=== PATIENT | female | born 1935 | race Caucasian/White ===

== ENCOUNTER → 2020-06-08 | Outpatient (CLI) | payer SELFPAY ==
[~2020-06-08] MED LIST: ASPIRIN81 MG PO; BENEFIBER1 EAC1 PO; CALCIUM 500+D1 EACH PO; COVID-19 VACC, MRNA(MODERNA)/PF 100 MCG/0.5 ML VIAL IM ONE; ELIQUIS5 MG PO; ISOSORBIDE MONO30 MG PO; MONTELUKAST SOD10 MG; NEXIUM40 MG PO; NITROSTAT0.4 MG PO; PRAVASTATIN SOD40 MG PO; SLO-NIACIN250 MG PO; ZETIA10 MG PO
== END ==
LOC: VACCPMC 10:47
DX: Z23 Encounter for immunization (principal); Z20.822 Contact with and (suspected) exposure to COVID-19
CPT/HCPCS: 0011A; 91301

== ENCOUNTER → 2020-07-06 | Outpatient (CLI) | payer MEDICARE, OTHER | END | disposition home or self-care (01) | LOC: VACCPMC 09:23 | DX: Z23 Encounter for immunization (principal); Z20.822 Contact with and (suspected) exposure to COVID-19 ==

== ENCOUNTER 2020-09-23 07:47 | Observation (INO) | payer MEDICARE, OTHER ==
[~2020-09-23] VITALS: Ht 154.9 cm; Wt 59.4 kg
[~2020-09-23 07:47] MED LIST changes: -COVID-19 VACC, MRNA(MODERNA)/PF 100 MCG/0.5 ML VIAL IM ONE
[2020-09-23 08:49] LABS: BASOPHILS % 0.7 % (0.0-1.0); EOSINOPHILS # (AUTO) 0.2 (0.0-0.4); EOSINOPHILS % 3.3 % (0.0-6.0); HEMATOCRIT 33.7 % (34.2-44.1); HEMOGLOBIN 10.8 g/dL (12.0-16.0); LYMPHOCYTES # (AUTO) 1.1 (1.0-3.2); LYMPHOCYTES % 17.4 % (18.0-39.1); MEAN CORPUSCULAR HEMOGLOBIN 27.8 pg (28-32); MEAN CORPUSCULAR VOLUME 86.9 fL (81-99); MONOCYTES # (AUTO) 0.7 (0.2-0.8); MONOCYTES % 11.9 % (4.4-11.3); NEUTROPHILS # (AUTO) 4.1 (2.1-6.9); PLATELET COUNT 177 x10e3/uL (140-360); RED BLOOD COUNT 3.88 x10e6/uL (3.6-5.1); RED CELL DISTRIBUTION WIDTH 14.1 % (11.7-14.4)
[2020-09-23 09:01] LABS: INR 1.03; PROTHROMBIN TIME 14.1 seconds (11.9-14.5)
[2020-09-23 09:02] LABS: PARTIAL THROMBOPLASTIN TIME 39.4 seconds (23.8-35.5)
[2020-09-23 09:14] LABS: ALBUMIN 3.8 g/dL (3.5-5.0); ALBUMIN/GLOBULIN RATIO 1.4 (0.8-2.0); ANION GAP 15.7 mmol/L (8-16); CALCIUM 8.9 mg/dL (8.4-10.2); CREATININE, SERUM 1.29 mg/dL (0.57-1.11); POTASSIUM 3.7 mmol/L (3.5-5.1)
[2020-09-23] MEDS ORDERED: ACETAMINOPHEN 325 MG TAB PO ONE (09:45)
[2020-09-23 09:55] LABS: CLARITY,URINE CLEAR (CLEAR); COLOR,URINE YELLOW (YELLOW); KETONES,URINE NEGATIVE (NEGATIVE); LEUKOCYTE ESTERASE ,URINE NEGATIVE (NEGATIVE); NITRITE,URINE NEGATIVE (NEGATIVE); PROTEIN,URINE DIPSTICK NEGATIVE (NEGATIVE); URINE UROBILINOGEN 0.2 mg/dL (0.2 - 1)
[2020-09-23 10:14] LABS: BACTERIA,URINE RARE /HPF; EPITHELIAL CELLS,URINE RARE /LPF; RBC,URINE 0-5 /HPF (0-5); WBC,URINE (MAN) 0-5 /HPF (0-5)
[2020-09-23] MEDS ORDERED: IBUPROFEN 200 MG TAB PO STA (10:24)
[2020-09-23 12:50] VITALS: BP 165/85
[2020-09-23 13:28] VITALS: BP 165/85
[2020-09-23 13:37] VITALS: BP 165/85
[2020-09-23] MEDS ORDERED: Miralax PO (14:15)
[2020-09-23] MEDS ORDERED: [UNRECOGNIZED DRUG - OTHER] PO (14:15)
[2020-09-23 15:43] VITALS: BP 168/73
[2020-09-23] MEDS ORDERED: MORPHINE SULFATE INJ 2 MG/ML SYR IV PRN (17:45)
[2020-09-23] MEDS ORDERED: ACETAMINOPHEN 325 MG TAB PO PRN (17:45)
[2020-09-23 19:30] VITALS: BP 130/60
[2020-09-23 20:00] VITALS: BP 130/60
[2020-09-23] MEDS ORDERED: SIMVASTATIN 20 MG TAB PO SCH (21:00)
[2020-09-23] MEDS ORDERED: EZETIMIBE 10 MG TAB PO SCH (21:00)
[2020-09-23] MEDS ORDERED: ASPIRIN 81 MG CHEW TAB PO SCH (21:00)
[2020-09-24] VITALS: BP 133/77
[2020-09-24] MEDS ORDERED: KETOROLAC TROMETHAMINE 30 MG/ML VIAL IV STA (03:49)
[2020-09-24 04:00] VITALS: BP 144/65
[2020-09-24 06:13] LABS: BASOPHILS % 0.6 % (0.0-1.0); EOSINOPHILS # (AUTO) 0.2 (0.0-0.4); EOSINOPHILS % 4.5 % (0.0-6.0); HEMATOCRIT 33.3 % (34.2-44.1); HEMOGLOBIN 10.8 g/dL (12.0-16.0); LYMPHOCYTES # (AUTO) 0.4 (1.0-3.2); MEAN CORPUSCULAR HEMOGLOBIN 28.1 pg (28-32); MEAN CORPUSCULAR HGB CONC 32.4 g/dL (31-35); MEAN CORPUSCULAR VOLUME 86.7 fL (81-99); MONOCYTES # (AUTO) 0.6 (0.2-0.8); MONOCYTES % 11.8 % (4.4-11.3); NEUTROPHILS # (AUTO) 3.4 (2.1-6.9); NEUTROPHILS % 73.7 % (38.7-80.0); PLATELET COUNT 154 x10e3/uL (140-360); RED BLOOD COUNT 3.84 x10e6/uL (3.6-5.1); RED CELL DISTRIBUTION WIDTH 14.2 % (11.7-14.4)
[2020-09-24 06:29] LABS: ALBUMIN 3.3 g/dL (3.5-5.0); ALBUMIN/GLOBULIN RATIO 1.1 (0.8-2.0); ANION GAP 14.4 mmol/L (8-16); CALCIUM 8.7 mg/dL (8.4-10.2); CREATININE, SERUM 1.22 mg/dL (0.57-1.11); POTASSIUM 3.4 mmol/L (3.5-5.1)
[2020-09-24 07:45] VITALS: BP 138/63
[2020-09-24 08:03] VITALS: BP 138/63
[2020-09-24] MEDS ORDERED: WHEAT DEXTRIN PO SCH (09:00)
[2020-09-24] MEDS ORDERED: ISOSORBIDE MONONITRATE 20 MG TAB PO SCH (09:00)
[2020-09-24] MEDS ORDERED: PANTOPRAZOLE SOD 40 MG TABEC PO SCH (09:00)
[2020-09-24] MEDS ORDERED: APIXABAN 5 MG TABLET PO SCH (09:00)
[2020-09-24] MEDS ORDERED: LORATADINE 10 MG TAB PO SCH (10:30)
[2020-09-24 11:14] VITALS: BP 107/58
[2020-09-24] MEDS ORDERED: POTASSIUM CHLORIDE 10MEQ EA PO NR (13:30)
[2020-09-25] MEDS ORDERED: POLYETHYLENE GLYCOL 3350 17 GM PACK PO SCH (10:00)
== END 2020-09-24 15:00 | disposition home or self-care (01) ==
LOC: ER 07:51 → ERHOLD 10:54 → MED/SURG 12:38
PROVIDERS: ADMIT Family Medicine; ATTEND Family Medicine
DX: M25.551 Pain in right hip (principal); I48.91 Unspecified atrial fibrillation; Z79.01 Long term (current) use of anticoagulants; I10 Essential (primary) hypertension; I25.10 Atherosclerotic heart disease of native coronary artery without angina pectoris; E78.5 Hyperlipidemia, unspecified; R53.81 Other malaise; I12.9 Hypertensive chronic kidney disease with stage 1 through stage 4 chronic kidney disease, or unspecified chronic kidney disease; N18.30 Chronic kidney disease, stage 3 unspecified; Z86.73 Personal history of transient ischemic attack (TIA), and cerebral infarction without residual deficits; Z95.1 Presence of aortocoronary bypass graft; M16.11 Unilateral primary osteoarthritis, right hip; W19.XXXA Unspecified fall, initial encounter; Y93.89 Activity, other specified
CPT/HCPCS: 36415 ×2; 70450; 71045; 72170; 72192; 73700; 80053 ×2; 81001; 84484; 85025 ×2; 85610; 85730; 93005; 97116; 97161; 97530; 99284; G0378 ×2; J1885; J2270; S0164

== ENCOUNTER 2020-10-09 10:05 | Inpatient (IN) | payer MEDICARE ==
[~2020-10-09] VITALS: Ht 154.9 cm; Wt 60.3 kg
[~2020-10-09 10:05] MED LIST changes: +Miralax PO; +[UNRECOGNIZED DRUG - OTHER] PO
[2020-10-09] MEDS ORDERED: HYDROCODONE/APAP 5MG-325MG TAB PO ONE (11:00)
[2020-10-09 15:10] LABS: BASOPHILS % 0.5 % (0.0-1.0); EOSINOPHILS # (AUTO) 0.7 (0.0-0.4); EOSINOPHILS % 9.1 % (0.0-6.0); HEMATOCRIT 35.2 % (34.2-44.1); HEMOGLOBIN 11.1 g/dL (12.0-16.0); LYMPHOCYTES # (AUTO) 1.9 (1.0-3.2); LYMPHOCYTES % 24.2 % (18.0-39.1); MEAN CORPUSCULAR HGB CONC 31.5 g/dL (31-35); MEAN CORPUSCULAR VOLUME 88.7 fL (81-99); MONOCYTES # (AUTO) 0.8 (0.2-0.8); MONOCYTES % 10.1 % (4.4-11.3); NEUTROPHILS # (AUTO) 4.4 (2.1-6.9); NEUTROPHILS % 55.5 % (38.7-80.0); PLATELET COUNT 334 x10e3/uL (140-360); RED BLOOD COUNT 3.97 x10e6/uL (3.6-5.1); RED CELL DISTRIBUTION WIDTH 14.8 % (11.7-14.4)
[2020-10-09 15:33] LABS: ALBUMIN 3.8 g/dL (3.5-5.0); ALBUMIN/GLOBULIN RATIO 1.1 (0.8-2.0); CALCIUM 9.4 mg/dL (8.4-10.2); CREATININE, SERUM 1.13 mg/dL (0.57-1.11); MAGNESIUM 2.5 MG/DL (1.3-2.1)
[2020-10-09] MEDS: ONDANSETRON HCL INJ 2MG/ML 2ML 2 MG/ML VIAL IV PRN (17:44)
[2020-10-09] MEDS: SODIUM CHLORIDE 0.9% 1000ML 1,000 ML IV SCH (17:44)
[2020-10-09] MEDS: MORPHINE SULFATE INJ 2 MG/ML SYR IV PRN ×2 (17:44→21:33)
[2020-10-10] VITALS (12 sets, daily range): BP systolic 115–161; BP diastolic 65–80
[2020-10-10] MEDS: ONDANSETRON HCL INJ 2MG/ML 2ML 2 MG/ML VIAL IV PRN ×4 (02:09→22:54)
[2020-10-10] MEDS: MORPHINE SULFATE INJ 2 MG/ML SYR IV PRN ×4 (02:09→22:54)
[2020-10-10] MEDS: SODIUM CHLORIDE 0.9% 1000ML 1,000 ML IV SCH ×2 (02:24→12:49)
[2020-10-10 07:46] LABS: CREATINE KINASE MB 1.2 ng/mL (0-5.0)
[2020-10-10 08:12] LABS: BASOPHILS # (AUTO) 0.1 (0.0-0.1); EOSINOPHILS # (AUTO) 0.7 (0.0-0.4); EOSINOPHILS % 11.4 % (0.0-6.0); HEMATOCRIT 33.5 % (34.2-44.1); HEMOGLOBIN 10.6 g/dL (12.0-16.0); LYMPHOCYTES # (AUTO) 1.4 (1.0-3.2); LYMPHOCYTES % 22.1 % (18.0-39.1); MEAN CORPUSCULAR HEMOGLOBIN 28.1 pg (28-32); MEAN CORPUSCULAR HGB CONC 31.6 g/dL (31-35); MEAN CORPUSCULAR VOLUME 88.9 fL (81-99); MONOCYTES # (AUTO) 0.7 (0.2-0.8); MONOCYTES % 12.1 % (4.4-11.3); NEUTROPHILS # (AUTO) 3.2 (2.1-6.9); NEUTROPHILS % 52.9 % (38.7-80.0); PLATELET COUNT 296 x10e3/uL (140-360); RED BLOOD COUNT 3.77 x10e6/uL (3.6-5.1); RED CELL DISTRIBUTION WIDTH 14.7 % (11.7-14.4)
[2020-10-10 08:44] LABS: CREATINE KINASE MB 1.1 ng/mL (0-5.0)
[2020-10-10 08:58] LABS: ALBUMIN 3.2 g/dL (3.5-5.0); ANION GAP 13.7 mmol/L (8-16); CALCIUM 8.9 mg/dL (8.4-10.2); CREATININE, SERUM 0.85 mg/dL (0.57-1.11); POTASSIUM 3.7 mmol/L (3.5-5.1)
[2020-10-10] MEDS ORDERED: MIRALAX17 GM PO (10:16)
[2020-10-10] MEDS ORDERED: ZEBETA10 MG PO (10:16)
[2020-10-10] MEDS ORDERED: LORATADINE10 MG PO (10:16)
[2020-10-10] MEDS ORDERED: AMLODIPINE BESYL5 MG PO (10:16)
[2020-10-10] MEDS ORDERED: POLYETHYLENE GLYCOL 3350 17 GM PACK PO PRN (17:15)
[2020-10-10] MEDS: APIXAB 2.5 MG TABLET PO SCH (18:02)
[2020-10-10] MEDS: LIDOCAINE 4% PATCH TP PRN (18:03)
[2020-10-10] MEDS: ASPIRIN 81 MG CHEW TAB PO SCH (21:42)
[2020-10-10] MEDS: AMLODIPINE BESYLATE 5 MG TAB PO SCH (21:44)
[2020-10-10] MEDS: CALCIUM CARBONATE 500 MG CHEWABLE TABS PO SCH (21:44)
[2020-10-10] MEDS: BISOPROLOL FUMARATE 10 MG TAB PO SCH (21:45)
[2020-10-10] MEDS: EZETIMIBE 10 MG TAB PO SCH (21:45)
[2020-10-11] VITALS (7 sets, daily range): BP systolic 133–151; BP diastolic 60–82
[2020-10-11 05:05] LABS: BASOPHILS % 0.7 % (0.0-1.0); EOSINOPHILS # (AUTO) 0.8 (0.0-0.4); EOSINOPHILS % 14.8 % (0.0-6.0); HEMATOCRIT 33.5 % (34.2-44.1); HEMOGLOBIN 10.6 g/dL (12.0-16.0); LYMPHOCYTES # (AUTO) 1.5 (1.0-3.2); LYMPHOCYTES % 28.4 % (18.0-39.1); MEAN CORPUSCULAR HEMOGLOBIN 27.5 pg (28-32); MEAN CORPUSCULAR HGB CONC 31.6 g/dL (31-35); MONOCYTES # (AUTO) 0.6 (0.2-0.8); MONOCYTES % 10.8 % (4.4-11.3); NEUTROPHILS # (AUTO) 2.4 (2.1-6.9); NEUTROPHILS % 44.6 % (38.7-80.0); PLATELET COUNT 303 x10e3/uL (140-360); RED BLOOD COUNT 3.85 x10e6/uL (3.6-5.1); RED CELL DISTRIBUTION WIDTH 14.6 % (11.7-14.4)
[2020-10-11 05:19] LABS: ANION GAP 12.9 mmol/L (8-16); CALCIUM 8.9 mg/dL (8.4-10.2); CREATININE, SERUM 0.93 mg/dL (0.57-1.11); POTASSIUM 3.9 mmol/L (3.5-5.1)
[2020-10-11] MEDS: APIXAB 2.5 MG TABLET PO SCH ×2 (08:21→16:45)
[2020-10-11] MEDS: LORATADINE 10 MG TAB PO SCH (08:21)
[2020-10-11] MEDS: CALCIUM CARBONATE 500 MG CHEWABLE TABS PO SCH ×3 (08:21→21:02)
[2020-10-11] MEDS: PANTOPRAZOLE SOD 40 MG TABEC PO SCH (08:21)
[2020-10-11] MEDS ORDERED: APIXABAN 5 MG TABLET PO SCH (09:00)
[2020-10-11] MEDS: LIDOCAINE 4% PATCH TP PRN (10:30)
[2020-10-11] MEDS: MORPHINE SULFATE INJ 2 MG/ML SYR IV PRN ×2 (10:30→18:27)
[2020-10-11] MEDS: ONDANSETRON HCL INJ 2MG/ML 2ML 2 MG/ML VIAL IV PRN (10:30)
[2020-10-11] MEDS: ACETAMINOPHEN/CODEINE 300MG - 30MG TAB PO PRN ×2 (14:40→21:18)
[2020-10-11 16:04] LABS: INR 0.93
[2020-10-11 16:05] LABS: PARTIAL THROMBOPLASTIN TIME 31.9 seconds (23.8-35.5)
[2020-10-11] MEDS ORDERED: PRAVASTATIN SODIUM 80 MG PO SCH (21:00)
[2020-10-11] MEDS: PRAVASTATIN 20 MG TAB PO SCH (21:02)
[2020-10-11] MEDS: AMLODIPINE BESYLATE 5 MG TAB PO SCH (21:02)
[2020-10-11] MEDS: ASPIRIN 81 MG CHEW TAB PO SCH (21:02)
[2020-10-11] MEDS: EZETIMIBE 10 MG TAB PO SCH (21:03)
[2020-10-11] MEDS: BISOPROLOL FUMARATE 10 MG TAB PO SCH (21:03)
[2020-10-12] VITALS (7 sets, daily range): BP systolic 120–156; BP diastolic 60–79
[2020-10-12] MEDS: ACETAMINOPHEN/CODEINE 300MG - 30MG TAB PO PRN ×3 (04:47→20:03)
[2020-10-12] MEDS: APIXAB 2.5 MG TABLET PO SCH ×2 (08:13→17:08)
[2020-10-12] MEDS: LORATADINE 10 MG TAB PO SCH (08:13)
[2020-10-12] MEDS: CALCIUM CARBONATE 500 MG CHEWABLE TABS PO SCH ×3 (08:13→22:32)
[2020-10-12] MEDS: PANTOPRAZOLE SOD 40 MG TABEC PO SCH (08:13)
[2020-10-12] MEDS: DOCUSATE SODIUM 100 MG CAP PO SCH ×2 (09:32→17:08)
[2020-10-12] MEDS: LIDOCAINE 4% PATCH TP PRN (11:32)
[2020-10-12] MEDS: MORPHINE SULFATE INJ 2 MG/ML SYR IV PRN ×2 (13:56→23:24)
[2020-10-12] MEDS ORDERED: PRAVASTATIN 20 MG TAB PO SCH (21:00)
[2020-10-12] MEDS: AMLODIPINE BESYLATE 5 MG TAB PO SCH (21:55)
[2020-10-12] MEDS: ASPIRIN 81 MG CHEW TAB PO SCH (22:31)
[2020-10-12] MEDS: PRAVASTATIN 20 MG TAB PO SCH (22:32)
[2020-10-12] MEDS: EZETIMIBE 10 MG TAB PO SCH (22:40)
[2020-10-12] MEDS: BISOPROLOL FUMARATE 10 MG TAB PO SCH (22:40)
[2020-10-13 04:00] VITALS: BP 145/86
[2020-10-13] MEDS: ACETAMINOPHEN/CODEINE 300MG - 30MG TAB PO PRN ×2 (06:22→09:17)
[2020-10-13 07:00] VITALS: BP 172/85
[2020-10-13] MEDS: DOCUSATE SODIUM 100 MG CAP PO SCH ×2 (08:42→16:58)
[2020-10-13] MEDS: LORATADINE 10 MG TAB PO SCH (08:42)
[2020-10-13] MEDS: APIXAB 2.5 MG TABLET PO SCH ×2 (08:42→16:58)
[2020-10-13] MEDS: PANTOPRAZOLE SOD 40 MG TABEC PO SCH (08:42)
[2020-10-13] MEDS: CALCIUM CARBONATE 500 MG CHEWABLE TABS PO SCH ×2 (08:42→15:48)
[2020-10-13 09:08] VITALS: BP 172/85
[2020-10-13 09:10] VITALS: BP 172/85
[2020-10-13 11:40] VITALS: BP 146/66
[2020-10-13] MEDS ORDERED: ONDANSETRON HCL 4 MG ORAL DISINTEGRATING TAB PO PRN (13:45)
[2020-10-13 15:49] VITALS: BP 137/65
== END 2020-10-13 17:50 | DRG 543 ==
LOC: ER 10:25 → ERHOLD 16:14 → MED/SURG 10-10 00:55
PROVIDERS: ADMIT Internal Medicine; ATTEND Internal Medicine
DX: M84.48XA Pathological fracture, other site, initial encounter for fracture (principal); I48.20 Chronic atrial fibrillation, unspecified; M54.16 Radiculopathy, lumbar region; M47.819 Spondylosis without myelopathy or radiculopathy, site unspecified; Z86.73 Personal history of transient ischemic attack (TIA), and cerebral infarction without residual deficits; I25.10 Atherosclerotic heart disease of native coronary artery without angina pectoris; Z79.01 Long term (current) use of anticoagulants; E78.5 Hyperlipidemia, unspecified; I10 Essential (primary) hypertension; Z20.822 Contact with and (suspected) exposure to COVID-19
CPT/HCPCS: 36415; 72131; 72148; 72192; 80048; 80053; 82550; 82553; 83735; 84484; 85025; 85610; 85730; 93005; 97139; 99284; J2270; J2405; J7030; U0002

== ENCOUNTER 2020-12-17 02:56 | Inpatient (IN) | payer MEDICARE ==
[~2020-12-17] VITALS: Ht 154.9 cm; Wt 60.3 kg
[2020-12-17] VITALS (9 sets, daily range): BP systolic 92–141; BP diastolic 49–74
[~2020-12-17 02:56] MED LIST changes: +AMLODIPINE BESYL5 MG PO; +LORATADINE10 MG PO; +MIRALAX17 GM PO; +ZEBETA10 MG PO
[2020-12-17] MEDS ORDERED: ONDANSETRON HCL INJ 2MG/ML 2ML 2 MG/ML VIAL IV STA (03:16)
[2020-12-17] MEDS ORDERED: Morphine 4mg Syringe 4 MG/ML INJ ONE (03:19)
[2020-12-17] MEDS ORDERED: ONDANSETRON HCL INJ 2MG/ML 2ML 2 MG/ML VIAL ONE ×2 (03:20→12:22)
[2020-12-17 03:24] LABS: BASOPHILS # (AUTO) 0.1 (0.0-0.1); BASOPHILS % 0.4 % (0.0-1.0); EOSINOPHILS # (AUTO) 0.2 (0.0-0.4); EOSINOPHILS % 1.7 % (0.0-6.0); HEMATOCRIT 38.4 % (34.2-44.1); HEMOGLOBIN 12.3 g/dL (12.0-16.0); LYMPHOCYTES # (AUTO) 1.7 (1.0-3.2); MEAN CORPUSCULAR HEMOGLOBIN 28.4 pg (28-32); MEAN CORPUSCULAR VOLUME 88.7 fL (81-99); MONOCYTES # (AUTO) 0.8 (0.2-0.8); PLATELET COUNT 208 x10e3/uL (140-360); RED BLOOD COUNT 4.33 x10e6/uL (3.6-5.1); RED CELL DISTRIBUTION WIDTH 14.2 % (11.7-14.4)
[2020-12-17 03:39] LABS: ALBUMIN 4.7 g/dL (3.5-5.0); ALBUMIN/GLOBULIN RATIO 1.5 (0.8-2.0); ANION GAP 17.1 mmol/L (8-16); CREATININE, SERUM 1.21 mg/dL (0.57-1.11); POTASSIUM 4.1 mmol/L (3.5-5.1)
[2020-12-17] MEDS: Morphine 4mg Syringe 4 MG/ML INJ IV PRN ×2 (03:50→10:47)
[2020-12-17] MEDS ORDERED: Morphine 4mg Syringe 4 MG/ML INJ IV PRN (04:00)
[2020-12-17] MEDS ORDERED: ONDANSETRON HCL INJ 2MG/ML 2ML 2 MG/ML VIAL IV PRN (04:00)
[2020-12-17] MEDS ORDERED: PROPOFOL IV EMULSION 10 MG/ML 20 ML VIAL ONE (12:22)
[2020-12-17] MEDS ORDERED: LIDOCAINE HCL 2% LOCAL INJ 5 ML SDV VIAL INJ ONE (12:22)
[2020-12-17] MEDS ORDERED: PHENYLEPHRINE HCL 1% 10 MG/ML VIAL ONE (12:22)
[2020-12-17] MEDS ORDERED: ROCURONIUM BROMIDE 10 MG/ML 5ML VIAL IV ONE (12:22)
[2020-12-17] MEDS ORDERED: DEXAMETHASONE SOD PHOS INJ 4 MG/ML SDV ONE (12:22)
[2020-12-17] MEDS ORDERED: POVIDONE IODINE 0.05% 0.05 % ML PO ONE (12:22)
[2020-12-17] MEDS: SODIUM CHLORIDE 0.9% 1000ML 1,000 ML IV SCH ×3 (15:00→23:00)
[2020-12-17] MEDS: FAMOTIDINE 20 MG TAB PO SCH (16:50)
[2020-12-17] MEDS: HYDROMORPHONE 1MG/1ML INJ IV PRN (17:13)
[2020-12-18] VITALS (11 sets, daily range): BP systolic 116–135; BP diastolic 49–71
[2020-12-18] MEDS: HYDROMORPHONE 1MG/1ML INJ IV PRN ×5 (00:58→23:35)
[2020-12-18] MEDS: SODIUM CHLORIDE 0.9% 1000ML 1,000 ML IV SCH (06:10)
[2020-12-18 07:04] LABS: BASOPHILS % 0.5 % (0.0-1.0); EOSINOPHILS # (AUTO) 0.2 (0.0-0.4); EOSINOPHILS % 2.6 % (0.0-6.0); HEMATOCRIT 35.1 % (34.2-44.1); LYMPHOCYTES # (AUTO) 1.3 (1.0-3.2); LYMPHOCYTES % 17.4 % (18.0-39.1); MEAN CORPUSCULAR HEMOGLOBIN 28.5 pg (28-32); MEAN CORPUSCULAR HGB CONC 31.3 g/dL (31-35); MEAN CORPUSCULAR VOLUME 90.9 fL (81-99); MONOCYTES # (AUTO) 0.8 (0.2-0.8); MONOCYTES % 10.2 % (4.4-11.3); NEUTROPHILS # (AUTO) 5.2 (2.1-6.9); NEUTROPHILS % 68.9 % (38.7-80.0); PLATELET COUNT 175 x10e3/uL (140-360); RED BLOOD COUNT 3.86 x10e6/uL (3.6-5.1); RED CELL DISTRIBUTION WIDTH 14.5 % (11.7-14.4)
[2020-12-18 07:09] LABS: INR 0.98; PROTHROMBIN TIME 13.2 seconds (11.9-14.5)
[2020-12-18 07:10] LABS: PARTIAL THROMBOPLASTIN TIME 34.5 seconds (23.8-35.5)
[2020-12-18 07:19] LABS: ANION GAP 13.3 mmol/L (8-16); CREATININE, SERUM 0.96 mg/dL (0.57-1.11); POTASSIUM 4.3 mmol/L (3.5-5.1)
[2020-12-18] MEDS: FAMOTIDINE 20 MG TAB PO SCH ×2 (07:30→16:53)
[2020-12-18 11:41] LABS: CLARITY,URINE CLEAR (CLEAR); COLOR,URINE YELLOW (YELLOW); LEUKOCYTE ESTERASE ,URINE NEGATIVE (NEGATIVE); NITRITE,URINE NEGATIVE (NEGATIVE); PROTEIN,URINE DIPSTICK 1+ (NEGATIVE)
[2020-12-18 11:42] LABS: KETONES,URINE NEGATIVE (NEGATIVE); URINE UROBILINOGEN 0.2 mg/dL (0.2 - 1)
[2020-12-18 11:46] LABS: BACTERIA,URINE FEW /HPF; EPITHELIAL CELLS,URINE MANY /LPF; RBC,URINE 0-5 /HPF (0-5)
[2020-12-18] MEDS ORDERED: ENOXAPARIN SOD INJ 40 MG/0.4 ML SYR SC ONE (17:00)
[2020-12-19] VITALS: BP 127/67
[2020-12-19 04:00] VITALS: BP 140/67
[2020-12-19] MEDS: HYDROMORPHONE 1MG/1ML INJ IV PRN ×3 (05:35→16:45)
[2020-12-19 06:07] LABS: BASOPHILS # (AUTO) 0.1 (0.0-0.1); BASOPHILS % 0.6 % (0.0-1.0); EOSINOPHILS # (AUTO) 0.3 (0.0-0.4); EOSINOPHILS % 3.5 % (0.0-6.0); HEMOGLOBIN 11.3 g/dL (12.0-16.0); LYMPHOCYTES # (AUTO) 1.3 (1.0-3.2); LYMPHOCYTES % 15.3 % (18.0-39.1); MEAN CORPUSCULAR HEMOGLOBIN 28.8 pg (28-32); MEAN CORPUSCULAR HGB CONC 32.3 g/dL (31-35); MEAN CORPUSCULAR VOLUME 89.1 fL (81-99); MONOCYTES # (AUTO) 0.9 (0.2-0.8); MONOCYTES % 10.8 % (4.4-11.3); NEUTROPHILS # (AUTO) 5.8 (2.1-6.9); NEUTROPHILS % 69.2 % (38.7-80.0); PLATELET COUNT 165 x10e3/uL (140-360); RED BLOOD COUNT 3.93 x10e6/uL (3.6-5.1); RED CELL DISTRIBUTION WIDTH 14.1 % (11.7-14.4)
[2020-12-19 06:30] LABS: INR 1.02; PROTHROMBIN TIME 13.6 seconds (11.9-14.5)
[2020-12-19 06:31] LABS: PARTIAL THROMBOPLASTIN TIME 37.4 seconds (23.8-35.5)
[2020-12-19 06:40] LABS: ANION GAP 12.2 mmol/L (8-16); CALCIUM 9.1 mg/dL (8.4-10.2); CREATININE, SERUM 0.79 mg/dL (0.57-1.11); POTASSIUM 4.2 mmol/L (3.5-5.1)
[2020-12-19] MEDS: FAMOTIDINE 20 MG TAB PO SCH ×2 (07:30→16:30)
[2020-12-19 07:44] VITALS: BP 115/63
[2020-12-19 07:48] VITALS: BP 115/63
[2020-12-19] MEDS: ATORVASTATIN 40 MG TAB PO SCH (08:30)
[2020-12-19] MEDS: ASPIRIN 81 MG CHEW TAB PO SCH (08:30)
[2020-12-19] MEDS: METOPROLOL TARTRATE 25 MG TAB PO SCH ×2 (08:30→20:30)
[2020-12-19] MEDS ORDERED: BISACODYL 10 MG SUPP PR PRN (09:30)
[2020-12-19 12:13] VITALS: BP 137/74
[2020-12-19 15:56] VITALS: BP 139/70
[2020-12-19] MEDS ORDERED: ROPIVACAINE 246.25 MG, EPINEPHRINE HCL 1:1000 1ML 0.5 MG, CLONIDINE HCL 0.08 MG, KETORO... INJ ONE ×5 (17:00)
[2020-12-19] MEDS ORDERED: TRANEXAMIC ACID 1,000 MG/10 ML ML ONE ×2 (17:23→19:12)
[2020-12-19] MEDS ORDERED: Vancomycin IV 500 MG ONE ×2 (17:23→17:25)
[2020-12-19] MEDS ORDERED: DOCUSATE SODIUM 100 MG CAP PO PRN (23:30)
[2020-12-19] MEDS ORDERED: DIPHENHYDRAMINE HCL INJ 50 MG/ML VIAL IV PRN (23:30)
[2020-12-19] MEDS ORDERED: HYDROCODONE/APAP 5MG-325MG TAB PO PRN (23:30)
[2020-12-19] MEDS ORDERED: METOPROLOL TARTRATE INJ 1 MG/ML VIAL ONE (23:58)
[2020-12-20] VITALS (8 sets, daily range): BP systolic 103–136; BP diastolic 50–74
[2020-12-20] MEDS: ACETAMINOPHEN 1000 MG/100 ML IV SCH ×4 (00:57→18:26)
[2020-12-20] MEDS: Cefazolin 1 GM in SODIUM CHLORIDE 0.9% 50ML 50 ML IV SCH ×3 (01:46→13:04)
[2020-12-20] MEDS ORDERED: SODIUM CHLORIDE 0.9% 250ML 250 ML ONE (01:56)
[2020-12-20 05:09] LABS: BASOPHILS % 0.3 % (0.0-1.0); HEMATOCRIT 29.9 % (34.2-44.1); HEMOGLOBIN 9.6 g/dL (12.0-16.0); LYMPHOCYTES # (AUTO) 0.4 (1.0-3.2); LYMPHOCYTES % 5.2 % (18.0-39.1); MEAN CORPUSCULAR HGB CONC 32.1 g/dL (31-35); MEAN CORPUSCULAR VOLUME 90.3 fL (81-99); MONOCYTES # (AUTO) 0.3 (0.2-0.8); NEUTROPHILS # (AUTO) 7.2 (2.1-6.9); NEUTROPHILS % 89.9 % (38.7-80.0); PLATELET COUNT 148 x10e3/uL (140-360); RED BLOOD COUNT 3.31 x10e6/uL (3.6-5.1); RED CELL DISTRIBUTION WIDTH 13.9 % (11.7-14.4)
[2020-12-20 05:42] LABS: ALBUMIN 2.6 g/dL (3.5-5.0); ALBUMIN/GLOBULIN RATIO 0.9 (0.8-2.0); ANION GAP 13.2 mmol/L (8-16); CALCIUM 8.6 mg/dL (8.4-10.2); CREATININE, SERUM 0.77 mg/dL (0.57-1.11); POTASSIUM 4.2 mmol/L (3.5-5.1)
[2020-12-20] MEDS: FAMOTIDINE 20 MG TAB PO SCH ×2 (08:43→16:55)
[2020-12-20] MEDS: BISACODYL 5 MG TAB EC PO SCH (08:43)
[2020-12-20] MEDS: ASPIRIN 81 MG CHEW TAB PO SCH (08:44)
[2020-12-20] MEDS: ATORVASTATIN 40 MG TAB PO SCH (08:44)
[2020-12-20] MEDS: METOPROLOL TARTRATE 25 MG TAB PO SCH ×2 (08:44→20:53)
[2020-12-20] MEDS: POLYETHYLENE GLYCOL 3350 17 GM PACK PO SCH (08:45)
[2020-12-20] MEDS: CELECOXIB 100 MG CAP PO SCH ×2 (08:45→16:55)
[2020-12-20] MEDS: ENOXAPARIN SOD INJ 40 MG/0.4 ML SYR SC SCH (16:55)
[2020-12-20] MEDS ORDERED: ENOXAPARIN SOD INJ 40 MG/0.4 ML SYR SC SCH (17:00)
[2020-12-20] MEDS: HYDROMORPHONE 1MG/1ML INJ IV PRN ×2 (22:56→23:41)
[2020-12-21] VITALS (8 sets, daily range): BP systolic 114–146; BP diastolic 51–76
[2020-12-21] MEDS: Morphine 4mg Syringe 4 MG/ML INJ IV PRN (04:58)
[2020-12-21] MEDS: HYDROMORPHONE 1MG/1ML INJ IV PRN (05:03)
[2020-12-21 05:44] LABS: BASOPHILS % 0.2 % (0.0-1.0); EOSINOPHILS # (AUTO) 0.1 (0.0-0.4); EOSINOPHILS % 1.1 % (0.0-6.0); HEMATOCRIT 27.2 % (34.2-44.1); LYMPHOCYTES # (AUTO) 0.9 (1.0-3.2); LYMPHOCYTES % 9.6 % (18.0-39.1); MEAN CORPUSCULAR HEMOGLOBIN 28.9 pg (28-32); MEAN CORPUSCULAR HGB CONC 33.1 g/dL (31-35); MEAN CORPUSCULAR VOLUME 87.5 fL (81-99); MONOCYTES # (AUTO) 0.9 (0.2-0.8); MONOCYTES % 9.4 % (4.4-11.3); NEUTROPHILS # (AUTO) 7.3 (2.1-6.9); NEUTROPHILS % 79.2 % (38.7-80.0); PLATELET COUNT 169 x10e3/uL (140-360); RED BLOOD COUNT 3.11 x10e6/uL (3.6-5.1); RED CELL DISTRIBUTION WIDTH 14.2 % (11.7-14.4)
[2020-12-21 06:06] LABS: ALBUMIN 2.6 g/dL (3.5-5.0); ALBUMIN/GLOBULIN RATIO 0.9 (0.8-2.0); ANION GAP 13.7 mmol/L (8-16); CALCIUM 8.4 mg/dL (8.4-10.2); CREATININE, SERUM 0.91 mg/dL (0.57-1.11); POTASSIUM 3.7 mmol/L (3.5-5.1)
[2020-12-21] MEDS: FAMOTIDINE 20 MG TAB PO SCH ×2 (08:47→16:34)
[2020-12-21] MEDS: METOPROLOL TARTRATE 25 MG TAB PO SCH ×2 (08:48→20:45)
[2020-12-21] MEDS: ASPIRIN 81 MG CHEW TAB PO SCH (08:51)
[2020-12-21] MEDS: ATORVASTATIN 40 MG TAB PO SCH (08:51)
[2020-12-21] MEDS: POLYETHYLENE GLYCOL 3350 17 GM PACK PO SCH (08:51)
[2020-12-21] MEDS: CELECOXIB 100 MG CAP PO SCH ×2 (08:51→16:34)
[2020-12-21] MEDS: BISACODYL 5 MG TAB EC PO SCH (08:52)
[2020-12-21] MEDS ORDERED: MAGNESIUM HYDROXIDE 30 ML UDC PO PRN (15:30)
[2020-12-21] MEDS: ENOXAPARIN SOD INJ 40 MG/0.4 ML SYR SC SCH (16:35)
[2020-12-21] MEDS: HYDROCODONE/APAP 7.5MG-325MG 1 EA TAB PO PRN (20:51)
[2020-12-22] VITALS (7 sets, daily range): BP systolic 110–163; BP diastolic 59–73
[2020-12-22 05:54] LABS: BASOPHILS % 0.6 % (0.0-1.0); EOSINOPHILS # (AUTO) 0.3 (0.0-0.4); EOSINOPHILS % 4.5 % (0.0-6.0); HEMATOCRIT 26.3 % (34.2-44.1); HEMOGLOBIN 8.5 g/dL (12.0-16.0); LYMPHOCYTES # (AUTO) 1.2 (1.0-3.2); LYMPHOCYTES % 17.3 % (18.0-39.1); MEAN CORPUSCULAR HEMOGLOBIN 28.6 pg (28-32); MEAN CORPUSCULAR HGB CONC 32.3 g/dL (31-35); MEAN CORPUSCULAR VOLUME 88.6 fL (81-99); MONOCYTES # (AUTO) 0.8 (0.2-0.8); MONOCYTES % 11.2 % (4.4-11.3); NEUTROPHILS # (AUTO) 4.4 (2.1-6.9); NEUTROPHILS % 65.8 % (38.7-80.0); PLATELET COUNT 172 x10e3/uL (140-360); RED BLOOD COUNT 2.97 x10e6/uL (3.6-5.1); RED CELL DISTRIBUTION WIDTH 14.4 % (11.7-14.4)
[2020-12-22 06:25] LABS: ALBUMIN 2.5 g/dL (3.5-5.0); ALBUMIN/GLOBULIN RATIO 0.9 (0.8-2.0); ANION GAP 10.7 mmol/L (8-16); CALCIUM 8.3 mg/dL (8.4-10.2); CREATININE, SERUM 0.93 mg/dL (0.57-1.11); POTASSIUM 3.7 mmol/L (3.5-5.1)
[2020-12-22] MEDS: FAMOTIDINE 20 MG TAB PO SCH ×2 (07:45→16:46)
[2020-12-22] MEDS: METOPROLOL TARTRATE 25 MG TAB PO SCH ×2 (07:45→21:24)
[2020-12-22] MEDS: POLYETHYLENE GLYCOL 3350 17 GM PACK PO SCH (09:22)
[2020-12-22] MEDS: ASPIRIN 81 MG CHEW TAB PO SCH (09:22)
[2020-12-22] MEDS: CELECOXIB 100 MG CAP PO SCH ×2 (09:22→16:46)
[2020-12-22] MEDS: BISACODYL 5 MG TAB EC PO SCH (09:22)
[2020-12-22] MEDS: ATORVASTATIN 40 MG TAB PO SCH (09:22)
[2020-12-22] MEDS: KETOROLAC TROMETHAMINE 30 MG/ML VIAL IV PRN (14:30)
[2020-12-22] MEDS: ENOXAPARIN SOD INJ 40 MG/0.4 ML SYR SC SCH (16:46)
[2020-12-23] VITALS (7 sets, daily range): BP systolic 122–154; BP diastolic 49–72
[2020-12-23] MEDS: KETOROLAC TROMETHAMINE 30 MG/ML VIAL IV PRN (00:13)
[2020-12-23] MEDS: FAMOTIDINE 20 MG TAB PO SCH ×2 (07:30→16:30)
[2020-12-23] MEDS: METOPROLOL TARTRATE 25 MG TAB PO SCH ×2 (08:30→20:44)
[2020-12-23] MEDS: ASPIRIN 81 MG CHEW TAB PO SCH (08:51)
[2020-12-23] MEDS: POLYETHYLENE GLYCOL 3350 17 GM PACK PO SCH (08:51)
[2020-12-23] MEDS: CELECOXIB 100 MG CAP PO SCH ×2 (08:51→16:53)
[2020-12-23] MEDS: ATORVASTATIN 40 MG TAB PO SCH (08:51)
[2020-12-23] MEDS: BISACODYL 5 MG TAB EC PO SCH (08:51)
[2020-12-23 10:50] LABS: BASOPHILS % 0.2 % (0.0-1.0); EOSINOPHILS # (AUTO) 0.2 (0.0-0.4); EOSINOPHILS % 2.3 % (0.0-6.0); HEMATOCRIT 29.5 % (34.2-44.1); HEMOGLOBIN 9.3 g/dL (12.0-16.0); MEAN CORPUSCULAR HEMOGLOBIN 28.8 pg (28-32); MEAN CORPUSCULAR HGB CONC 31.5 g/dL (31-35); MEAN CORPUSCULAR VOLUME 91.3 fL (81-99); MONOCYTES # (AUTO) 0.7 (0.2-0.8); MONOCYTES % 7.5 % (4.4-11.3); NEUTROPHILS # (AUTO) 7.7 (2.1-6.9); NEUTROPHILS % 79.5 % (38.7-80.0); PLATELET COUNT 181 x10e3/uL (140-360); RED BLOOD COUNT 3.23 x10e6/uL (3.6-5.1); RED CELL DISTRIBUTION WIDTH 14.6 % (11.7-14.4)
[2020-12-23 11:14] LABS: ALBUMIN 2.5 g/dL (3.5-5.0); ALBUMIN/GLOBULIN RATIO 0.8 (0.8-2.0); ANION GAP 12.8 mmol/L (8-16); CALCIUM 8.4 mg/dL (8.4-10.2); CREATININE, SERUM 0.95 mg/dL (0.57-1.11); POTASSIUM 3.8 mmol/L (3.5-5.1)
[2020-12-23] MEDS: ENOXAPARIN SOD INJ 40 MG/0.4 ML SYR SC SCH (16:53)
[2020-12-23] MEDS ORDERED: APIXAB 2.5 MG TABLET PO SCH (17:00)
[2020-12-24] VITALS (8 sets, daily range): BP systolic 114–147; BP diastolic 51–76
[2020-12-24] MEDS: HYDROCODONE/APAP 7.5MG-325MG 1 EA TAB PO PRN (00:43)
[2020-12-24] MEDS: FAMOTIDINE 20 MG TAB PO SCH ×2 (06:14→16:30)
[2020-12-24 06:24] LABS: BASOPHILS % 0.3 % (0.0-1.0); EOSINOPHILS # (AUTO) 0.3 (0.0-0.4); EOSINOPHILS % 4.6 % (0.0-6.0); HEMATOCRIT 25.6 % (34.2-44.1); HEMOGLOBIN 8.2 g/dL (12.0-16.0); LYMPHOCYTES # (AUTO) 1.4 (1.0-3.2); LYMPHOCYTES % 19.2 % (18.0-39.1); MEAN CORPUSCULAR HEMOGLOBIN 28.5 pg (28-32); MEAN CORPUSCULAR VOLUME 88.9 fL (81-99); MONOCYTES # (AUTO) 0.8 (0.2-0.8); MONOCYTES % 10.7 % (4.4-11.3); NEUTROPHILS # (AUTO) 4.6 (2.1-6.9); NEUTROPHILS % 64.2 % (38.7-80.0); PLATELET COUNT 201 x10e3/uL (140-360); RED BLOOD COUNT 2.88 x10e6/uL (3.6-5.1); RED CELL DISTRIBUTION WIDTH 14.4 % (11.7-14.4)
[2020-12-24 06:49] LABS: ANION GAP 10.9 mmol/L (8-16); CALCIUM 8.5 mg/dL (8.4-10.2); CREATININE, SERUM 0.86 mg/dL (0.57-1.11); PHOSPHORUS 2.8 MG/DL (2.3-4.7); POTASSIUM 3.9 mmol/L (3.5-5.1)
[2020-12-24] MEDS: METOPROLOL TARTRATE 25 MG TAB PO SCH ×2 (08:30→21:13)
[2020-12-24] MEDS: ATORVASTATIN 40 MG TAB PO SCH (09:00)
[2020-12-24] MEDS: ASPIRIN 81 MG CHEW TAB PO SCH (09:00)
[2020-12-24] MEDS ORDERED: POLYETHYLENE GLYCOL 3350 17 GM PACK PO PRN (09:00)
[2020-12-24] MEDS: CELECOXIB 100 MG CAP PO SCH ×2 (09:00→17:00)
[2020-12-24] MEDS: ENOXAPARIN SOD INJ 40 MG/0.4 ML SYR SC SCH (17:00)
[2020-12-24] MEDS: ACETAMINOPHEN 325 MG TAB PO PRN (19:00)
[2020-12-25] VITALS (7 sets, daily range): BP systolic 100–177; BP diastolic 50–88
[2020-12-25] MEDS: HYDROCODONE/APAP 7.5MG-325MG 1 EA TAB PO PRN ×2 (02:57→23:52)
[2020-12-25 04:59] LABS: % IRON SATURATION 9 % (15-50); IRON 17 ug/dL (50-170); TOTAL IRON BINDING CAPACITY 199 ug/dL (261-478); TRANSFERRIN 142 mg/dL (180-382)
[2020-12-25] MEDS: FAMOTIDINE 20 MG TAB PO SCH ×2 (06:25→16:30)
[2020-12-25] MEDS: METOPROLOL TARTRATE 25 MG TAB PO SCH ×2 (08:30→20:14)
[2020-12-25] MEDS: ATORVASTATIN 40 MG TAB PO SCH (09:00)
[2020-12-25] MEDS: CELECOXIB 100 MG CAP PO SCH ×2 (09:00→17:00)
[2020-12-25] MEDS: ASPIRIN 81 MG CHEW TAB PO SCH (09:00)
[2020-12-25] MEDS: ENOXAPARIN SOD INJ 40 MG/0.4 ML SYR SC SCH (17:00)
[2020-12-25] MEDS: ACETAMINOPHEN 325 MG TAB PO PRN (18:30)
[2020-12-25] MEDS ORDERED: FOLIC ACID 1 MG TAB PO ONE (21:00)
[2020-12-25] MEDS ORDERED: CYANOCOBALAMIN INJ 1,000 MCG/ML VIAL IM ONE (21:00)
[2020-12-26] VITALS (8 sets, daily range): BP systolic 118–167; BP diastolic 56–76
[2020-12-26 06:20] LABS: BASOPHILS % 0.4 % (0.0-1.0); EOSINOPHILS # (AUTO) 0.4 (0.0-0.4); EOSINOPHILS % 4.5 % (0.0-6.0); HEMATOCRIT 24.3 % (34.2-44.1); HEMOGLOBIN 7.6 g/dL (12.0-16.0); LYMPHOCYTES # (AUTO) 1.6 (1.0-3.2); LYMPHOCYTES % 19.9 % (18.0-39.1); MEAN CORPUSCULAR HGB CONC 31.3 g/dL (31-35); MEAN CORPUSCULAR VOLUME 89.7 fL (81-99); MONOCYTES # (AUTO) 0.9 (0.2-0.8); MONOCYTES % 10.9 % (4.4-11.3); NEUTROPHILS # (AUTO) 4.8 (2.1-6.9); NEUTROPHILS % 61.3 % (38.7-80.0); PLATELET COUNT 313 x10e3/uL (140-360); RED BLOOD COUNT 2.71 x10e6/uL (3.6-5.1); RED CELL DISTRIBUTION WIDTH 14.3 % (11.7-14.4)
[2020-12-26 06:36] LABS: ANION GAP 14.1 mmol/L (8-16); CALCIUM 8.6 mg/dL (8.4-10.2); POTASSIUM 4.1 mmol/L (3.5-5.1)
[2020-12-26 07:07] LABS: CREATININE, SERUM 0.97 mg/dL (0.57-1.11)
[2020-12-26] MEDS: FAMOTIDINE 20 MG TAB PO SCH ×2 (08:24→16:55)
[2020-12-26] MEDS: CELECOXIB 100 MG CAP PO SCH ×2 (08:25→16:55)
[2020-12-26] MEDS: CYANOCOBALAMIN INJ 1,000 MCG/ML VIAL IM SCH (08:25)
[2020-12-26] MEDS: ATORVASTATIN 40 MG TAB PO SCH (08:25)
[2020-12-26] MEDS: FOLIC ACID 1 MG TAB PO SCH (08:25)
[2020-12-26] MEDS: METOPROLOL TARTRATE 25 MG TAB PO SCH ×2 (08:25→20:39)
[2020-12-26] MEDS: ASPIRIN 81 MG CHEW TAB PO SCH (08:25)
[2020-12-26] MEDS: HYDROCODONE/APAP 7.5MG-325MG 1 EA TAB PO PRN ×2 (08:25→22:22)
[2020-12-26] MEDS: IRON SUCROSE 100 MG in SODIUM CHLORIDE 0.9% 100 ML 100 ML IV SCH (08:49)
[2020-12-26] MEDS ORDERED: ONDANSETRON HCL 4 MG ORAL DISINTEGRATING TAB PO PRN (12:00)
[2020-12-26] MEDS: APIXAB 2.5 MG TABLET PO SCH ×2 (12:30→16:55)
[2020-12-26] MEDS: ACETAMINOPHEN 325 MG TAB PO PRN (20:42)
[2020-12-27] VITALS (8 sets, daily range): BP systolic 127–179; BP diastolic 56–81
[2020-12-27 05:45] LABS: BASOPHILS % 0.4 % (0.0-1.0); EOSINOPHILS # (AUTO) 0.4 (0.0-0.4); EOSINOPHILS % 4.3 % (0.0-6.0); HEMATOCRIT 25.4 % (34.2-44.1); HEMOGLOBIN 8.2 g/dL (12.0-16.0); LYMPHOCYTES # (AUTO) 1.3 (1.0-3.2); LYMPHOCYTES % 15.9 % (18.0-39.1); MEAN CORPUSCULAR HEMOGLOBIN 28.7 pg (28-32); MEAN CORPUSCULAR HGB CONC 32.3 g/dL (31-35); MEAN CORPUSCULAR VOLUME 88.8 fL (81-99); MONOCYTES # (AUTO) 1.1 (0.2-0.8); MONOCYTES % 12.8 % (4.4-11.3); NEUTROPHILS # (AUTO) 5.2 (2.1-6.9); NEUTROPHILS % 62.2 % (38.7-80.0); PLATELET COUNT 339 x10e3/uL (140-360); RED BLOOD COUNT 2.86 x10e6/uL (3.6-5.1); RED CELL DISTRIBUTION WIDTH 14.5 % (11.7-14.4)
[2020-12-27] MEDS: FAMOTIDINE 20 MG TAB PO SCH ×2 (06:10→08:37)
[2020-12-27 06:32] LABS: ALBUMIN 2.3 g/dL (3.5-5.0); ALBUMIN/GLOBULIN RATIO 0.9 (0.8-2.0); ANION GAP 13.2 mmol/L (8-16); CALCIUM 8.6 mg/dL (8.4-10.2); CREATININE, SERUM 0.94 mg/dL (0.57-1.11); MAGNESIUM 2.2 MG/DL (1.3-2.1); POTASSIUM 4.2 mmol/L (3.5-5.1)
[2020-12-27] MEDS: METOPROLOL TARTRATE 25 MG TAB PO SCH ×2 (08:37→20:28)
[2020-12-27] MEDS: FOLIC ACID 1 MG TAB PO SCH (08:37)
[2020-12-27] MEDS: APIXAB 2.5 MG TABLET PO SCH ×2 (08:37→16:40)
[2020-12-27] MEDS: IRON SUCROSE 100 MG in SODIUM CHLORIDE 0.9% 100 ML 100 ML IV SCH (08:37)
[2020-12-27] MEDS: CELECOXIB 100 MG CAP PO SCH ×2 (08:37→16:35)
[2020-12-27] MEDS: CYANOCOBALAMIN INJ 1,000 MCG/ML VIAL IM SCH (08:37)
[2020-12-27] MEDS: ASPIRIN 81 MG CHEW TAB PO SCH (08:37)
[2020-12-27] MEDS: ATORVASTATIN 40 MG TAB PO SCH (08:37)
[2020-12-27] MEDS ORDERED: MELATONIN 3 MG TAB PO SCH (21:00)
[2020-12-27] MEDS: ACETAMINOPHEN 325 MG TAB PO PRN (23:33)
[2020-12-28] VITALS: BP 149/60
[2020-12-28] MEDS: HYDROCODONE/APAP 7.5MG-325MG 1 EA TAB PO PRN ×2 (03:17→16:50)
[2020-12-28 04:00] VITALS: BP 147/65
[2020-12-28 05:01] LABS: BASOPHILS % 0.4 % (0.0-1.0); EOSINOPHILS # (AUTO) 0.4 (0.0-0.4); EOSINOPHILS % 4.1 % (0.0-6.0); HEMATOCRIT 24.7 % (34.2-44.1); HEMOGLOBIN 7.8 g/dL (12.0-16.0); LYMPHOCYTES # (AUTO) 1.6 (1.0-3.2); LYMPHOCYTES % 17.8 % (18.0-39.1); MEAN CORPUSCULAR HEMOGLOBIN 28.5 pg (28-32); MEAN CORPUSCULAR HGB CONC 31.6 g/dL (31-35); MEAN CORPUSCULAR VOLUME 90.1 fL (81-99); MONOCYTES # (AUTO) 1.1 (0.2-0.8); MONOCYTES % 11.8 % (4.4-11.3); NEUTROPHILS # (AUTO) 5.4 (2.1-6.9); NEUTROPHILS % 58.9 % (38.7-80.0); PLATELET COUNT 423 x10e3/uL (140-360); RED BLOOD COUNT 2.74 x10e6/uL (3.6-5.1); RED CELL DISTRIBUTION WIDTH 14.6 % (11.7-14.4)
[2020-12-28 05:38] LABS: ALBUMIN 2.4 g/dL (3.5-5.0); ALBUMIN/GLOBULIN RATIO 0.9 (0.8-2.0); ANION GAP 12.2 mmol/L (8-16); CALCIUM 8.5 mg/dL (8.4-10.2); CREATININE, SERUM 0.95 mg/dL (0.57-1.11); POTASSIUM 4.2 mmol/L (3.5-5.1)
[2020-12-28] MEDS: FAMOTIDINE 20 MG TAB PO SCH ×2 (06:01→16:45)
[2020-12-28 07:57] VITALS: BP 152/71
[2020-12-28 08:00] VITALS: BP 152/71
[2020-12-28] MEDS: FOLIC ACID 1 MG TAB PO SCH (08:53)
[2020-12-28] MEDS: ASPIRIN 81 MG CHEW TAB PO SCH (08:53)
[2020-12-28] MEDS: CELECOXIB 100 MG CAP PO SCH ×2 (08:53→16:45)
[2020-12-28] MEDS: METOPROLOL TARTRATE 25 MG TAB PO SCH (08:53)
[2020-12-28] MEDS: APIXAB 2.5 MG TABLET PO SCH ×2 (08:54→16:45)
[2020-12-28] MEDS: CYANOCOBALAMIN INJ 1,000 MCG/ML VIAL IM SCH (08:55)
[2020-12-28] MEDS: IRON SUCROSE 100 MG in SODIUM CHLORIDE 0.9% 100 ML 100 ML IV SCH (09:05)
[2020-12-28 10:54] VITALS: BP 131/65
[2020-12-28] MEDS ORDERED: MILK OF MA400 MG/5 M PO (12:29)
[2020-12-28] MEDS ORDERED: CELEBREX100 MG PO (12:29)
[2020-12-28] MEDS ORDERED: LOPRESSOR25 MG PO (12:29)
[2020-12-28] MEDS ORDERED: ONDANSETRON ODT4 MG PO (12:29)
[2020-12-28] MEDS ORDERED: MIRALAX17 GM PO (12:29)
[2020-12-28 14:47] VITALS: BP 142/46
[2020-12-28] MEDS ORDERED: PANTOPRAZOLE SOD 40 MG TABEC PO SCH (21:00)
[2020-12-28] MEDS ORDERED: MELATONIN 3 MG TAB PO SCH (21:00)
== END 2020-12-28 17:25 | DRG 522 ==
LOC: ER 03:31 → ERHOLD 04:38 → MED/SURG 04:48
PROVIDERS: ADMIT Internal Medicine; ATTEND Internal Medicine
PROC: 0SRS0JA Replacement of Left Hip Joint, Femoral Surface with Synthetic Substitute, Uncemented, Open Approach (ICD-10-PCS; principal; 2020-12-19 10:30)
DX: S72.092A Other fracture of head and neck of left femur, initial encounter for closed fracture (principal); I48.20 Chronic atrial fibrillation, unspecified; D62 Acute posthemorrhagic anemia; K92.2 Gastrointestinal hemorrhage, unspecified; S72.002A Fracture of unspecified part of neck of left femur, initial encounter for closed fracture; W18.09XA Striking against other object with subsequent fall, initial encounter; Y92.009 Unspecified place in unspecified non-institutional (private) residence as the place of occurrence of the external cause; I25.10 Atherosclerotic heart disease of native coronary artery without angina pectoris; Z95.1 Presence of aortocoronary bypass graft; Z79.01 Long term (current) use of anticoagulants; Z20.822 Contact with and (suspected) exposure to COVID-19; Z86.73 Personal history of transient ischemic attack (TIA), and cerebral infarction without residual deficits; E78.5 Hyperlipidemia, unspecified; K59.09 Other constipation
CPT/HCPCS: 36415; 71045; 72170; 74018; 80048; 80053; 81001; 82270; 82550; 82553; 82607; 82746; 83540; 83735; 84100; 84466; 84484; 85025; 85045; 85610; 85730; 86850; 86900; 93005; 93306; 97139; 99251; 99285; C1713; C1776; J0171; J0690; J1100; J1170; J1200; J1650; J1756; J1885; J2001; J2270; J2370; J2405; J2795; J3370; J3420; J7030; J7050; U0002

== ENCOUNTER 2020-12-30 05:48 | Emergency (ER) | payer MEDICARE ==
[~2020-12-30] VITALS: Ht 154.9 cm; Wt 60.3 kg
[~2020-12-30 05:48] MED LIST changes: +CELEBREX100 MG PO; +LOPRESSOR25 MG PO; +MILK OF MA400 MG/5 M PO; +ONDANSETRON ODT4 MG PO
[2020-12-30 07:49] LABS: BASOPHILS # (AUTO) 0.1 (0.0-0.1); BASOPHILS % 0.6 % (0.0-1.0); EOSINOPHILS # (AUTO) 0.3 (0.0-0.4); EOSINOPHILS % 2.8 % (0.0-6.0); HEMATOCRIT 26.9 % (34.2-44.1); HEMOGLOBIN 8.3 g/dL (12.0-16.0); LYMPHOCYTES # (AUTO) 1.7 (1.0-3.2); LYMPHOCYTES % 15.7 % (18.0-39.1); MEAN CORPUSCULAR HEMOGLOBIN 28.6 pg (28-32); MEAN CORPUSCULAR HGB CONC 30.9 g/dL (31-35); MEAN CORPUSCULAR VOLUME 92.8 fL (81-99); MONOCYTES % 9.1 % (4.4-11.3); PLATELET COUNT 526 x10e3/uL (140-360); RED CELL DISTRIBUTION WIDTH 15.5 % (11.7-14.4)
[2020-12-30 08:01] LABS: INR 0.98; PROTHROMBIN TIME 13.4 seconds (11.9-14.5)
[2020-12-30 08:02] LABS: PARTIAL THROMBOPLASTIN TIME 35.5 seconds (23.8-35.5)
[2020-12-30 08:05] LABS: ALBUMIN/GLOBULIN RATIO 1.1 (0.8-2.0); ANION GAP 14.1 mmol/L (8-16); CALCIUM 8.7 mg/dL (8.4-10.2); CREATININE, SERUM 1.01 mg/dL (0.57-1.11); POTASSIUM 4.1 mmol/L (3.5-5.1)
[2020-12-30 08:13] LABS: CREATINE KINASE MB 1.3 ng/mL (0-5.0)
[2020-12-30 09:21] VITALS: BP 152/71
== END 2020-12-30 09:17 | disposition other institution (70) ==
LOC: ER 06:04
DX: S06.5X0A Traumatic subdural hemorrhage without loss of consciousness, initial encounter (principal); W19.XXXA Unspecified fall, initial encounter; Y92.128 Other place in nursing home as the place of occurrence of the external cause; I10 Essential (primary) hypertension; I25.10 Atherosclerotic heart disease of native coronary artery without angina pectoris; I48.91 Unspecified atrial fibrillation; Z20.822 Contact with and (suspected) exposure to COVID-19; Z95.1 Presence of aortocoronary bypass graft; Z85.828 Personal history of other malignant neoplasm of skin
CPT/HCPCS: 36415; 70450; 80053; 82550; 82553; 84484; 85025; 85610; 85730; 99284; U0002

== ENCOUNTER 2021-11-08 16:28 | Emergency (ER) | payer MEDICARE ==
[~2021-11-08] VITALS: Ht 154.9 cm; Wt 60.3 kg
== END 2021-11-08 19:28 | disposition home or self-care (01) ==
LOC: ER 16:59
DX: M54.50 Low back pain, unspecified (principal); M25.552 Pain in left hip; M85.88 Other specified disorders of bone density and structure, other site; I10 Essential (primary) hypertension; I48.91 Unspecified atrial fibrillation; I25.10 Atherosclerotic heart disease of native coronary artery without angina pectoris; Z86.73 Personal history of transient ischemic attack (TIA), and cerebral infarction without residual deficits; Z95.1 Presence of aortocoronary bypass graft; Z85.828 Personal history of other malignant neoplasm of skin
CPT/HCPCS: 72100; 72220; 99283